=== PATIENT | female | born 1965 | race African-American/Black ===

== ENCOUNTER 2023-01-16 23:33 | Emergency (ER) | payer MEDICAID ==
[~2023-01-16] VITALS: Ht 167.6 cm; Wt 77.0 kg
[2023-01-16 23:35] VITALS: TEMP 98.6; O2SAT 97
[2023-01-17] MEDS ORDERED: LORAZEPAM 2MG/ML CPJ IV ONE (00:30)
[2023-01-17 00:58] LABS: BASOPHILS % 0.8 % (0.0-2.0); EOSINOPHILS % 4.3 % (0.0-5.0); HEMATOCRIT. 32.6 % (36.0-48.0); HEMOGLOBIN. 10.8 g/dL (12.0-16.0); LYMPHOCYTES % 43.7 % (20.0-50.0); MEAN CORPUSCULAR HEMOGLOBIN 31.3 pg (28.0-32.0); MEAN CORPUSCULAR VOLUME 94.5 fL (81.0-99.0); MEAN PLATELET VOLUME 8.9 fl (7.4-10.4); NEUTROPHILS % 43.2 % (40.0-76.0); PLATELET 305 x1000/uL (130-400); RED BLOOD CELL COUNT 3.45 mill/uL (4.2-5.4); RED CELL DISTRIBUTION WIDTH 15.3 % (11.6-14.6)
[2023-01-17 01:41] LABS: CHLORIDE 113 mEq/L (98-107)
[2023-01-17 01:48] LABS: ETHANOL BLOOD 27 mg/dL (-10)
[2023-01-17 02:24] LABS: *AMPHETAMINES SCREEN URINE NEGATIVE (NEGATIVE); *BARBITURATES SCREEN URINE NEGATIVE (NEGATIVE); *BENZODIAZEPINES SCREEN URINE PRESUMTIVE POSITIVE (NEGATIVE); *COCAINE SCREEN URINE PRESUMTIVE POSITIVE (NEGATIVE); CANNABINOID URINE SCREEN NEGATIVE (NEGATIVE); METHADONE URINE SCREEN NEGATIVE (NEGATIVE); OPIATES URINE SCREEN NEGATIVE (NEGATIVE); PHENCYCLIDINE URINE SCREEN NEGATIVE (NEGATIVE)
[2023-01-17] MEDS ORDERED: HYDROXYZINE 25MG TABLET PO NR (02:45)
[2023-01-17 03:38] VITALS: RESP 18
[2023-01-17] MEDS ORDERED: VIST25 MT (04:24)
[2023-01-17] MEDS ORDERED: P20 MT (04:24)
[2023-01-17 04:48] VITALS: BP 122/70; PULSE 88
== END 2023-01-17 05:38 | disposition home or self-care (01) ==
LOC: ER 23:33
DX: L29.9 Pruritus, unspecified (principal); Z88.9 Allergy status to unspecified drugs, medicaments and biological substances
CPT/HCPCS: 36415; 80053; 80305; 80320; 85025; 96374; 99285; J2060; G0480